=== PATIENT | female | born 1980 | race Caucasian/White ===

== ENCOUNTER 2024-04-13 13:55 | Inpatient (IN) | payer MEDICAID ==
[~2024-04-13] VITALS: Ht 160 cm; Wt 79.4 kg
[~2024-04-13 13:55] MED LIST: BENZ-247 PO; CARV3.1231 PO; CETI5TAB14 PO; CHOL25TA4 PO; FURO-152 PO; GABA-1216 PO; HALO5TAB23 PO; LEVO100 PO; LITH300T PO; MULT-1303 PO; POLY250020 PO; SOFO1TAB PO; SPIR50TA27 PO
[2024-04-13] MEDS ORDERED: ChlorproMAZINE HCL 100 MG TABLET PO PRN (14:15)
[2024-04-13] MEDS ORDERED: MAG HYDROX/ALUMINUM HYD/SIMETH ES 30 ML SUSPENSION UDCUP PO PRN (20:00)
[2024-04-13] MEDS ORDERED: PETROLATUM,WHITE 28 GM JELLY TP PRN (20:00)
[2024-04-13] MEDS ORDERED: OMEPRAZOLE 20 MG CAPSULE PO PRN (20:00)
[2024-04-13] MEDS ORDERED: IBUPROFEN 600 MG TABLET PO PRN (20:00)
[2024-04-13] MEDS ORDERED: CloNIDine HCL 0.1 MG TABLET PO PRN (20:00)
[2024-04-13] MEDS ORDERED: LOPERAMIDE HCL 2 MG CAPSULE PO PRN (20:00)
[2024-04-13] MEDS ORDERED: BENZOCAINE/MENTHOL LOZENGE PO PRN (20:00)
[2024-04-13] MEDS ORDERED: ALBUTEROL SULFATE HFA 90 MCG/PUFF 8 GM INHALER IH PRN (20:00)
[2024-04-13] MEDS ORDERED: DOCUSATE SODIUM 100 MG CAPSULE PO PRN (20:00)
[2024-04-13] MEDS ORDERED: ONDANSETRON 4 MG TABLET PO PRN (20:00)
[2024-04-13] MEDS ORDERED: ACETAMINOPHEN 325 MG TABLET PO PRN (20:00)
[2024-04-13] MEDS ORDERED: BACITRACIN 28 GM OINTMENT TP PRN (20:00)
[2024-04-13] MEDS ORDERED: MAGNESIUM HYDROXIDE SUSPENSION 30 ML UDCUP PO PRN (20:00)
[2024-04-14 00:05] VITALS: BP 127/91; PULSE 69; RESP 16; TEMP 97.6; O2SAT 99
[2024-04-14] MEDS: ZOLPIDEM TARTRATE 10 MG TABLET PO PRN (00:35)
[2024-04-14 08:27] LABS: HEMOGLOBIN A1C 4.8 % (3.8-5.6)
[2024-04-14 08:29] LABS: BASOPHILS % (AUTO) 0.7 % (0.0-2.0); EOSINOPHILS % (AUTO) 6.5 % (1.0-6.0); HEMOGLOBIN 13.7 g/dL (12.0-16.0); LYMPHOCYTES # (AUTO) 1.2 K/uL (1.0-4.8); LYMPHOCYTES % (AUTO) 27.3 % (22.0-44.0); MEAN CORPUSCULAR HEMOGLOBIN 31.4 pg (26.0-34.0); MEAN CORPUSCULAR HGB CONC 34.3 G/dL (31.0-37.0); MEAN CORPUSCULAR VOLUME 92 fL (80-100); MONOCYTES # (AUTO) 0.4 K/uL (0.1-1.0); MONOCYTES % (AUTO) 9.4 % (2.0-9.0); NEUTROPHILS # (AUTO) 2.4 K/uL (1.8-7.7); NEUTROPHILS % (AUTO) 56.1 % (40.0-70.0); PLATELET COUNT (AUTO) 74 K/uL (150-450); RED BLOOD CELL COUNT(AUTO) 4.38 MIL/uL (4.00-5.20); RED CELL DISTRIBUTION WIDTH 14.1 % (11.5-14.5); WHITE BLOOD COUNT (AUTO) 4.3 K/uL (4.5-11.0)
[2024-04-14 08:47] LABS: ALANINE AMINOTRANSFERASE 25 U/L (12-78); ALBUMIN 3.2 g/dL (3.4-5.0); ALKALINE PHOSPHATASE 96 U/L (46-116); ANION GAP 3 mmol/L (8-16); ASPARTATE AMINOTRANSFERASE 24 U/L (15-37); BILIRUBIN,TOTAL 0.5 mg/dL (0.1-1.0); CALCIUM, TOTAL 8.6 mg/dL (8.8-10.5); CARBON DIOXIDE 28 mmol/L (22-29); CHLORIDE 107 mmol/L (98-107); CHOL/HDL RATIO 3.7 (3.9-5.7); CHOLESTEROL 169 mg/dL (131-200); CREATININE 0.77 mg/dL (0.60-1.30); FREE T4 (FREE THYROXINE) 0.89 ng/dL (0.76-1.46); GLOMERULAR FILTR. RATE CALC > 60 mL/min (>60); GLUCOSE,RANDOM 90 mg/dL (70-110); HDL CHOLESTEROL 46 mg/dL (40-60); LDL CHOL (CALC.) 99 mg/dL (0-130); POTASSIUM 4.3 mmol/L (3.5-5.1); SODIUM SERUM 138 mmol/L (136-145); THYROID STIMULATING HORMONE 1.54 uIU/mL (0.36-3.74); TOTAL PROTEIN, SERUM 6.4 g/dL (6.4-8.2); TRIGLYCERIDES 122 mg/dL (15-150); UREA NITROGEN, BLOOD 10 mg/dL (7-18)
[2024-04-14 09:04] VITALS: BP 123/75; PULSE 78; RESP 20; TEMP 96.3; O2SAT 100
[2024-04-14] MEDS ORDERED: NICOTINE POLACRILEX 2 MG GUM CHEW PRN (11:45)
[2024-04-14] MEDS: LORazepam 1 MG TABLET PO PRN (12:36)
[2024-04-14 20:18] VITALS: BP 134/76; PULSE 85; RESP 18; TEMP 96.3; O2SAT 99
[2024-04-15 08:06] LABS: HEPATITIS C AB (EIA) Reactive (Non Reactive)
[2024-04-15 08:31] VITALS: BP 124/81; PULSE 79; RESP 16; TEMP 97.4; O2SAT 99
[2024-04-15] MEDS: NICOTINE POLACRILEX 2 MG LOZENGE PO PRN (09:53)
[2024-04-15] MEDS: LITHIUM CARBONATE 300 MG TABLET PO SCH (17:00)
[2024-04-15] MEDS: BENZTROPINE MESYLATE 1 MG TABLET PO SCH (17:00)
[2024-04-15 21:11] VITALS: BP 127/52; PULSE 68; RESP 18; TEMP 98.4; O2SAT 97
[2024-04-16 09:17] VITALS: BP 124/63; PULSE 78; RESP 18; TEMP 96.3; O2SAT 97
[2024-04-16] MEDS: HALOPERIDOL 5 MG TABLET PO SCH (09:20)
[2024-04-16] MEDS: NICOTINE POLACRILEX 2 MG GUM CHEW PRN (11:47)
[2024-04-16 20:10] VITALS: BP 126/61; PULSE 61; RESP 18; TEMP 98; O2SAT 98
[2024-04-17 08:27] VITALS: BP 100/51; PULSE 62; RESP 18; TEMP 97.1; O2SAT 97
[2024-04-17 12:06] LABS: HEPATITIS C RT-PCR,QNT HCV Not Detected IU/mL
[2024-04-17 21:11] VITALS: RESP 19; TEMP 97.5; O2SAT 96
[2024-04-18 08:33] VITALS: BP 115/67; PULSE 87; RESP 17; TEMP 97.2; O2SAT 97
[2024-04-18 20:35] VITALS: BP 115/67; PULSE 83; RESP 17; TEMP 97; O2SAT 100
== END 2024-04-18 22:31 | DRG 750 ==
LOC: B2S 18:45
PROVIDERS: ADMIT Psychiatry & Neurology Psychiatry; ATTEND Psychiatry & Neurology Psychiatry
DX: F25.0 Schizoaffective disorder, bipolar type (principal); R45.851 Suicidal ideations; B18.2 Chronic viral hepatitis C; F17.200 Nicotine dependence, unspecified, uncomplicated; F41.9 Anxiety disorder, unspecified; G47.00 Insomnia, unspecified; I10 Essential (primary) hypertension; J44.9 Chronic obstructive pulmonary disease, unspecified; K59.00 Constipation, unspecified; Z60.8 Other problems related to social environment
CPT/HCPCS: 80053; 80061; 82248; 83036; 84439; 84443; 85025; 86803; 87081; 87340; 87481; 87522